=== PATIENT | female | born 1980 | race Two or more races ===

== ENCOUNTER → 2019-12-02 | Outpatient (CLI) | payer BC ==
--- NOTE | 2019-12-02 11:57 | KCIC ---
EXAM: Chest, 2 views. HISTORY: Dyspnea. Cigarette smoking history. COMPARISON: None. FINDINGS: 2 views of the chest are obtained. There is no infiltrate, pleural effusion or pneumothorax. The heart is normal in size. IMPRESSION: No acute pulmonary finding. Electronically signed by: Arabella Mason MD (12/02/2019 11:54 AM) [id number]
== END | disposition home or self-care (01) ==
LOC: KCIC 11:25
PROVIDERS: ATTEND Family Medicine
DX: R06.00 Dyspnea, unspecified (principal); Z87.891 Personal history of nicotine dependence
CPT/HCPCS: 71046